=== PATIENT | female | born 1975 | race Caucasian/White ===

== ENCOUNTER 2017-06-04 15:11 | Inpatient (IN) | payer SELFPAY ==
[~2017-06-04 15:11] MED LIST: Levothyroxine 75 MCG Tab PO SCH
[2017-06-04] MEDS ORDERED: LORazepam 2 MG/ML SDV ONE (15:13)
[2017-06-04] MEDS ORDERED: LORazepam 2 MG/ML SDV IVPUSH ONE ×2 (15:13→15:34)
[2017-06-04] MEDS ORDERED: Sodium Chloride 0.9% 10 ML Syringe FLUSH PRN ×2 (15:14→17:17)
[2017-06-04] MEDS ORDERED: Sodium Chloride 0.9% 1,000 ML IV ONE ×2 (15:14→16:44)
[2017-06-04] MEDS ORDERED: Sodium Chloride 0.9% 2.5 ML Syringe FLUSH PRN ×2 (15:14→17:17)
--- NOTE | 2017-06-04 15:16 | EDM.PDOC ---
ED HPI GENERAL MEDICAL PROBLEM - General Stated Complaint: NUMBNESS IN HER HANDS Time Seen by Provider: 06/04/17 15:16 Source of Information: Reports: Patient History Limitations: Reports: No Limitations - History of Present Illness INITIAL COMMENTS - FREE TEXT/NARRATIVE: HISTORY AND PHYSICAL: []41-year-old female presenting with concerns over "my calciums high" History of Present Illness: []Patient is breathing rapidly. Holding arms rigidly to her chest Review of Systems: As per history of present illness and below otherwise all systems reviewed and negative. Past medical history: As per history of present illness and as reviewed below otherwise noncontributory. Surgical history: As per history of present illness and as reviewed below otherwise noncontributory. Social history: No reported history of drug or alcohol abuse. Family history: As per history of present illness and as reviewed below otherwise noncontributory. Physical exam: Following directions well. HEENT: Atraumatic, normocehpalic, pupils reactive, negative for conjunctival pallor or scleral icterus, mucous membranes moist, throat clear, neck supple, nontender, trachea midline. Lungs: Clear to auscultation, breath sounds equal bilaterally, chest non tender. Heart: S1S2, regular, negative for clicks, rubs, or JVD. Abdomen: Soft, nondistended, nontender. Negative for masses or hepatossplenmegaly. Negative for costovertebral tenderness. Pelvis: Stable nontender. Genitourinary: Deferred. Rectal: Deferred Extremities: Atraumatic, negative for cords or calf pain. Neurovascular unremarkable. Neuro: Awake, alert, oriented. Cranial nerves II through XII unremarkable. Cerebellum unremarkable. Motor and sensory unremarkable throughout. Exam nonfocal. Discussed results with the patient and with her boyfriend and they have voiced understanding Discussed this patient with Dr. Houston who has accepted patient for inpatient admission on telemetry Diagnostics: []CBC CMP exam EKG UA urine drug screen urine culture Therapeutics: []Ativan Normal saline Impression: [Hypocalcemia] Plan: []Admit as inpatient hospital Definitive disposition and diagnosis as appropriate pending reevaluation and review of above. Onset: Today, Sudden Duration: Minutes:, Getting Worse Location: Reports: Generalized Quality: Reports: Ache Severity: Moderate Improves with: Reports: None Worsens with: Reports: None - Related Data Allergies Allergy/AdvReac Type Severity Reaction Status Date / Time morphine Allergy Other Verified 06/04/17 15:40 Opioids - Morphine Analogues Allergy Other Verified 06/04/17 15:40 Home Meds: Home Meds Levothyroxine 175 mcg PO DAILY 06/04/17 [History] ED ROS GENERAL - Review of Systems Review Of Systems: ROS reveals no pertinent complaints other than HPI. ED EXAM, GENERAL - Physical Exam Exam: See Below (See dictation) EKG INTERPRETATION EKG Date: 06/04/17 Rhythm: NSR Comparison: NA - No Prior EKG Course - Vital Signs Last Recorded V/S: Last Vital Signs Temp 35.9 C 06/04/17 15:27 Pulse 119 H 06/04/17 15:27 Resp 40 H 06/04/17 15:27 BP 172/132 H 06/04/17 15:27 Pulse Ox 80 L 06/04/17 15:27 - Orders/Labs/Meds Orders: Active Orders 24 hr Category Date Time Status Patient Status [ADT] Stat ADT 06/04/17 16:59 Ordered EKG Documentation Completion [RC] STAT Care 06/04/17 15:20 Active Chest 1V Frontal [CR] Stat Exams 06/04/17 15:43 Taken CULTURE URINE [RM] Stat Lab 06/04/17 15:26 Received Calcium Gluconate 1 gm Med 06/04/17 17:00 Active Sodium Chloride 0.9% [Normal Saline] 100 ml IV ONETIME Magnesium Sulfate/Water [Magnesium Sulfate 2 GM in Med 06/04/17 16:39 Active Water 50 ML] 2 gm Premix Bag 1 bag IV ONETIME Sodium Chloride 0.9% [Normal Saline] 1,000 ml Med 06/04/17 16:44 Active IV STAT Sodium Chloride 0.9% [Saline Flush] Med 06/04/17 15:14 Active 10 ml FLUSH ASDIRECTED PRN Sodium Chloride 0.9% [Saline Flush] Med 06/04/17 15:14 Active 2.5 ml FLUSH ASDIRECTED PRN Saline Lock Insert [OM.PC] Stat Oth 06/04/17 15:13 Ordered Medication Orders Magnesium Sulfate 2 gm/ Premix 50 mls @ 25 mls/hr IV ONETIME ONE Stop: 06/04/17 18:38 Last Admin: 06/04/17 16:49 Dose: 25 mls/hr Sodium Chloride (Normal Saline) 1,000 mls @ 125 mls/hr IV STAT ONE Stop: 06/05/17 00:43 Calcium Gluconate 1 gm/ Sodium (Chloride) 110 mls @ 110 mls/hr IV ONETIME ONE Stop: 06/04/17 17:59 Last Admin: 06/04/17 16:58 Dose: 220 mls/hr Sodium Chloride (Saline Flush) 10 ml FLUSH ASDIRECTED PRN PRN Reason: Keep Vein Open Sodium Chloride (Saline Flush) 2.5 ml FLUSH ASDIRECTED PRN PRN Reason: Keep Vein Open Labs: Laboratory Tests 06/04/17 06/04/17 06/04/17 Range/Units 15:15 15:15 15:15 WBC 9.09 (4.0-11.0) K/uL RBC 4.14 L (4.30-5.90) M/uL Hgb 12.8 (12.0-16.0) g/dL Hct 39.8 (36.0-46.0) % MCV 96.1 (80.0-98.0) fL MCH 30.9 (27.0-32.0) pg MCHC 32.2 (31.0-37.0) g/dL RDW Std Deviation 53.6 (28.0-62.0) fl RDW Coeff of Francine 15 (11.0-15.0) % Plt Count 308 (150-400) K/uL MPV 11.30 (7.40-12.00) fL Neut % (Auto) 53.3 (48.0-80.0) % Lymph % (Auto) 38.6 (16.0-40.0) % [place] % (Auto) 7.7 (0.0-15.0) % Eos % (Auto) 0.0 (0.0-7.0) % Baso % (Auto) 0.4 (0.0-1.5) % Neut # (Auto) 4.8 (1.4-5.7) K/uL Lymph # (Auto) 3.5 H (0.6-2.4) K/uL [place] # (Auto) 0.7 (0.0-0.8) K/uL Eos # (Auto) 0.0 (0.0-0.7) K/uL Baso # (Auto) 0.0 (0.0-0.1) K/uL Nucleated RBC % 0.0 /100WBC Nucleated RBCs # 0 K/uL Sodium 142 (136-145) mmol/L Potassium 4.4 (3.5-5.1) mmol/L Chloride 103 (98-107) mmol/L Carbon Dioxide 22.4 (21.0-32.0) mmol/L BUN 13 (7.0-18.0) mg/dL Creatinine 1.1 H (0.6-1.0) mg/dL Est Cr Clr Drug Dosing TNP Estimated GFR (MDRD) 55.0 ml/min Glucose 100 (74-106) mg/dL Calcium 6.2 L (8.5-10.1) mg/dL Magnesium 1.4 L (1.5-2.0) mg/dL Total Bilirubin 0.3 (0.2-1.0) mg/dL AST 19 (15-37) IU/L ALT 13 L (14-63) IU/L Alkaline Phosphatase 48 (46-116) U/L Total Protein 7.4 (6.4-8.2) g/dL Albumin 3.7 (3.4-5.0) g/dL Globulin 3.7 H (2.0-3.5) g/dL Albumin/Globulin Ratio 1.0 L (1.3-2.8) Free T4 0.64 L (0.76-1.46) ng/dL TSH 3rd Generation 26.74 H (0.36-3.74) uIU/mL Urine Color Urine Appearance Urine pH (5.0-8.0) Ur Specific [place] (1.001-1.035) Urine Protein (NEGATIVE) mg/dL Urine Glucose (UA) (NEGATIVE) mg/dL Urine Ketones (NEGATIVE) mg/dL Urine Occult Blood (NEGATIVE) Urine Nitrite (NEGATIVE) Urine Bilirubin (NEGATIVE) Urine Urobilinogen (<2.0) EU/dL Ur Leukocyte Esterase (NEGATIVE) Urine RBC (0-2/HPF) Urine WBC (0-5/HPF) Ur Epithelial Cells (NONE-FEW) Urine Bacteria (NEGATIVE) Urine Opiates Screen (NEGATIVE) Ur Oxycodone Screen (NEGATIVE) Urine Methadone Screen (NEGATIVE) Ur Barbiturates Screen (NEGATIVE) Ur Phencyclidine Scrn (NEGATIVE) Ur Amphetamine Screen (NEGATIVE) U Methamphetamines Scrn (NEGATIVE) U Benzodiazepines Scrn (NEGATIVE) U Cocaine Metab Screen (NEGATIVE) U Marijuana (THC) Screen (NEGATIVE) 06/04/17 06/04/17 Range/Units 15:26 15:26 WBC (4.0-11.0) K/uL RBC (4.30-5.90) M/uL Hgb (12.0-16.0) g/dL Hct (36.0-46.0) % MCV (80.0-98.0) fL MCH (27.0-32.0) pg MCHC (31.0-37.0) g/dL RDW Std Deviation (28.0-62.0) fl RDW Coeff of Francine (11.0-15.0) % Plt Count (150-400) K/uL MPV (7.40-12.00) fL Neut % (Auto) (48.0-80.0) % Lymph % (Auto) (16.0-40.0) % [place] % (Auto) (0.0-15.0) % Eos % (Auto) (0.0-7.0) % Baso % (Auto) (0.0-1.5) % Neut # (Auto) (1.4-5.7) K/uL Lymph # (Auto) (0.6-2.4) K/uL [place] # (Auto) (0.0-0.8) K/uL Eos # (Auto) (0.0-0.7) K/uL Baso # (Auto) (0.0-0.1) K/uL Nucleated RBC % /100WBC Nucleated RBCs # K/uL Sodium (136-145) mmol/L Potassium (3.5-5.1) mmol/L Chloride (98-107) mmol/L Carbon Dioxide (21.0-32.0) mmol/L BUN (7.0-18.0) mg/dL Creatinine (0.6-1.0) mg/dL Est Cr Clr Drug Dosing Estimated GFR (MDRD) ml/min Glucose (74-106) mg/dL Calcium (8.5-10.1) mg/dL Magnesium (1.5-2.0) mg/dL Total Bilirubin (0.2-1.0) mg/dL AST (15-37) IU/L ALT (14-63) IU/L Alkaline Phosphatase (46-116) U/L Total Protein (6.4-8.2) g/dL Albumin (3.4-5.0) g/dL Globulin (2.0-3.5) g/dL Albumin/Globulin Ratio (1.3-2.8) Free T4 (0.76-1.46) ng/dL TSH 3rd Generation (0.36-3.74) uIU/mL Urine Color YELLOW Urine Appearance CLEAR Urine pH 8.0 (5.0-8.0) Ur Specific [place] 1.015 (1.001-1.035) Urine Protein TRACE (NEGATIVE) mg/dL Urine Glucose (UA) NEGATIVE (NEGATIVE) mg/dL Urine Ketones NEGATIVE (NEGATIVE) mg/dL Urine Occult Blood NEGATIVE (NEGATIVE) Urine Nitrite NEGATIVE (NEGATIVE) Urine Bilirubin NEGATIVE (NEGATIVE) Urine Urobilinogen 0.2 (<2.0) EU/dL Ur Leukocyte Esterase NEGATIVE (NEGATIVE) Urine RBC 0-1 (0-2/HPF) Urine WBC 0-1 (0-5/HPF) Ur Epithelial Cells RARE (NONE-FEW) Urine Bacteria RARE (NEGATIVE) Urine Opiates Screen NEGATIVE (NEGATIVE) Ur Oxycodone Screen NEGATIVE (NEGATIVE) Urine Methadone Screen NEGATIVE (NEGATIVE) Ur Barbiturates Screen NEGATIVE (NEGATIVE) Ur Phencyclidine Scrn NEGATIVE (NEGATIVE) Ur Amphetamine Screen NEGATIVE (NEGATIVE) U Methamphetamines Scrn NEGATIVE (NEGATIVE) U Benzodiazepines Scrn NEGATIVE (NEGATIVE) U Cocaine Metab Screen NEGATIVE (NEGATIVE) U Marijuana (THC) Screen POSITIVE (NEGATIVE) Meds: Medications Generic Name Dose Route Start Last Admin Trade Name Freq PRN Reason Stop Dose Admin Magnesium Sulfate 2 gm/ Premix 50 mls @ 25 mls/hr 06/04/17 16:39 06/04/17 16: 49 IV 06/04/17 18:38 25 mls/hr ONETIME ONE Administration Sodium Chloride 1,000 mls @ 125 mls/hr 06/04/17 16:44 Normal Saline IV 06/05/17 00:43 STAT ONE Calcium Gluconate 1 gm/ Sodium 110 mls @ 110 mls/hr 06/04/17 17:00 06/04/17 16:58 Chloride IV 06/04/17 17:59 220 mls/hr ONETIME ONE Administration Sodium Chloride 10 ml 06/04/17 15:14 Saline Flush FLUSH ASDIRECTED PRN Keep Vein Open Sodium Chloride 2.5 ml 06/04/17 15:14 Saline Flush FLUSH ASDIRECTED PRN Keep Vein Open Discontinued Medications Generic Name Dose Route Start Last Admin Trade Name Mary PRN Reason Stop Dose Admin Sodium Chloride 1,000 mls @ 999 mls/hr 06/04/17 15:14 06/04/17 15:44 Normal Saline IV 06/04/17 16:14 999 mls/hr STAT ONE Administration Lorazepam 1 mg 06/04/17 15:13 06/04/17 15:43 Ativan IVPUSH 06/04/17 15:14 1 mg ONETIME ONE Administration Lorazepam Confirm 06/04/17 15:13 06/04/17 15:43 Ativan Administered 06/04/17 15:14 Not Given Dose 2 mg .ROUTE .STK-MED ONE Lorazepam 1 mg 06/04/17 15:34 06/04/17 15:36 Ativan IVPUSH 06/04/17 15:35 1 mg ONETIME ONE Administration Departure - Departure Time of Disposition: 17:02 Disposition: Admitted As Inpatient 67 Condition: Fair Clinical Impression: Hypocalcemia - Discharge Information - My Orders Last 24 Hours: My Active Orders 06/04/17 15:13 Saline Lock Insert [OM.PC] Stat 06/04/17 15:14 Sodium Chloride 0.9% [Saline Flush] 10 ml FLUSH ASDIRECTED PRN Sodium Chloride 0.9% [Saline Flush] 2.5 ml FLUSH ASDIRECTED PRN 06/04/17 15:20 EKG Documentation Completion [RC] STAT 06/04/17 15:26 CULTURE URINE [RM] Stat 06/04/17 15:43 Chest 1V Frontal [CR] Stat 06/04/17 16:39 Magnesium Sulfate/Water [Magnesium Sulfate 2 GM in Water 50 ML] 2 gm Premix Bag 1 bag IV ONETIME 06/04/17 16:44 Sodium Chloride 0.9% [Normal Saline] 1,000 ml IV STAT 06/04/17 16:59 Patient Status [ADT] Stat 06/04/17 17:00 Calcium Gluconate 1 gm Sodium Chloride 0.9% [Normal Saline] 100 ml IV ONETIME - Assessment/Plan Last 24 Hours: My Active Orders 06/04/17 15:13 Saline Lock Insert [OM.PC] Stat 06/04/17 15:14 Sodium Chloride 0.9% [Saline Flush] 10 ml FLUSH ASDIRECTED PRN Sodium Chloride 0.9% [Saline Flush] 2.5 ml FLUSH ASDIRECTED PRN 06/04/17 15:20 EKG Documentation Completion [RC] STAT 06/04/17 15:26 CULTURE URINE [RM] Stat 06/04/17 15:43 Chest 1V Frontal [CR] Stat 06/04/17 16:39 Magnesium Sulfate/Water [Magnesium Sulfate 2 GM in Water 50 ML] 2 gm Premix Bag 1 bag IV ONETIME 06/04/17 16:44 Sodium Chloride 0.9% [Normal Saline] 1,000 ml IV STAT 06/04/17 16:59 Patient Status [ADT] Stat 06/04/17 17:00 Calcium Gluconate 1 gm Sodium Chloride 0.9% [Normal Saline] 100 ml IV ONETIME
[2017-06-04 16:09] LABS: CHLORIDE,CL 103 mmol/L (98-107); SODIUM,NA 142 mmol/L (136-145)
[2017-06-04] MEDS ORDERED: Magnesium Sulfate/Water 2 GM in Premix Bag 1 BAG IV ONE (16:39)
[2017-06-04] MEDS ORDERED: Calcium Gluconate 1 GM in Sodium Chloride 0.9% 100 ML IV ONE (17:00)
[2017-06-04] MEDS ORDERED: Ondansetron 4 MG/2 ML SDV IVPUSH PRN (17:17)
[2017-06-04] MEDS ORDERED: Sodium Chloride 0.9% 1,000 ML IV SCH (17:30)
[2017-06-04] MEDS ORDERED: Levothyroxine 75 MCG Tab PO SCH (18:10)
[2017-06-04] MEDS ORDERED: Calcium Gluconate 1 GM in Dextrose 5% in Water 50 ML IV SCH ×4 (18:15)
[2017-06-04] MEDS: Enoxaparin 40 MG/0.4 ML Syringe SUBCUT SCH (18:16)
--- NOTE | 2017-06-04 18:16 | PCM.HP ---
H&P History of Present Illness - General Date of Service: 06/04/17 Admit Problem/Dx: Admission Diagnosis/Problem Admission Diagnosis/Problem Hypocalcemia Source of Information: Patient - History of Present Illness Initial Comments - Free Text/Narative: This is a 41-year-old female who is presenting secondary to symptomatic hypocalcemia, hypo-thyroidism. Patient states that she has a significant past medical history of hypothyroidism secondary to a thyroidectomy which accidentally also resulted in all 4 of her parathyroid glands being removed as well. As a result the patient is hypothyroid as well as hypoparathyroid. Patient states that she is on levothyroxine 175mcg daily along with taking calcium supplementation for which she does not recall how much she takes. Patient states that she is noncompliant with her medication. This is evident by the fact the patient's TSH is greater than 24, and her T4 is subtherapeutic, and she has a hypocalcemia of 6.2 on admission. Patient states that this morning when she tried to get into her top she started to severely cramp and the cramping and muscle spasms would not go away, she does have a positive chvostek's sign. In the ER the patient was given 1 g of calcium gluconate IV. Headache Pain Score (Numeric/FACES): 7 - Related Data Allergies/Adverse Reactions: Allergies Allergy/AdvReac Type Severity Reaction Status Date / Time morphine Allergy Other Verified 06/04/17 15:40 Opioids - Morphine Analogues Allergy Other Verified 06/04/17 15:40 Home Medications: Home Meds Levothyroxine 175 mcg PO DAILY 06/04/17 [History] Calcitriol 0.25 mcg PO BID 30 Days #60 capsule 06/05/17 [Rx] Calcium Citrate 1 gm MC DAILY 30 Days #30 powder 06/05/17 [Rx] Levothyroxine 175 mcg PO ACBRK 3 Days #3 tab 06/05/17 [Rx] Past Medical History HEENT History: Reports: None Cardiovascular History: Reports: None Respiratory History: Reports: None Gastrointestinal History: Reports: None Genitourinary History: Reports: None [employer] History: Reports: None Musculoskeletal History: Reports: None Neurological History: Reports: Cerebral Aneurysms Psychiatric History: Reports: None Endocrine/Metabolic History: Reports: None Hematologic History: Reports: Other (See Below) Other Hematologic History: Calcium deficency Immunologic History: Reports: None Oncologic (Cancer) History: Reports: None Dermatologic History: Reports: None - Infectious Disease History Infectious Disease History: Reports: Other (See Below) Other Infectious Disease History: pt unable to answer - Past Surgical History Head Surgeries/Procedures: Reports: None HEENT Surgical History: Reports: None Cardiovascular Surgical History: Reports: None Respiratory Surgical History: Reports: None GI Surgical History: Reports: None Female Surgical History: Reports: Tubal Ligation Endocrine Surgical History: Reports: Thyroidectomy Neurological Surgical History: Reports: None Musculoskeletal Surgical History: Reports: None Oncologic Surgical History: Reports: None Dermatological Surgical History: Reports: None Social & Family History - Family History Family Medical History: Unobtainable - Tobacco Use Smoking Status *Q: Unknown Ever Smoked - Caffeine Use Caffeine Use: Reports: None Other Caffeine Use: unable to assess - Recreational Drug Use Recreational Drug Use: Yes Recreational Drug Type: Reports: Marijuana/Hashish, Methamphetamine H&P Review of Systems - Review of Systems: Review Of Systems: ROS reveals no pertinent complaints other than HPI. Exam - Exam Exam: See Below - Vital Signs Vital Signs: Last Vital Signs Temp 36.8 C 06/04/17 17:58 Pulse 76 06/04/17 17:58 Resp 18 06/04/17 17:58 BP 126/75 06/04/17 17:58 Pulse Ox 100 06/04/17 17:58 Weight: 60.8 kg - Exam General: Alert, Cooperative, Mild Distress HEENT: Other (Patient appeared to be slightly drowsy, does have a positive chvostek sign. ) Lungs: Clear to Auscultation, Normal Respiratory Effort Cardiovascular: Regular Rate GI/Abdominal Exam: Normal Bowel Sounds - Patient Data Result Diagrams: 06/05/17 06:05 06/05/17 06:05 *Q Meaningful Use (ADM) - VTE *Q VTE Criteria *Q: - Stroke *Q Stroke Criteria *Q: - AMI *Q AMI Criteria *Q: - Problem List (1) Hypothyroidism SNOMED Code(s): 20404581 ICD Code: E03.9 - HYPOTHYROIDISM, UNSPECIFIED Status: Acute Problem List Initiated/Reviewed/Updated: Yes Orders Last 24hrs: Active Orders 24 hr Category Date Time Status Patient Status [ADT] Routine ADT 06/04/17 17:17 Active Antiembolic Devices [RC] PER UNIT ROUTINE Care 06/04/17 17:21 Active Cardiac Monitoring [RC] Q8H Care 06/04/17 17:19 Active Height and Weight [RC] UPON Care 06/04/17 17:17 Active Intake and Output [RC] QSHIFT Care 06/04/17 17:19 Active Notify Provider Vital Signs [RC] ASDIRECTED Care 06/04/17 17:19 Active Oxygen Therapy [RC] PRN Care 06/04/17 17:17 Active Pulse Oximetry [RC] PRN Care 06/04/17 17:19 Active Telemetry Monitoring [Cardiac Monitoring] [RC] . Care 06/04/17 17:03 Active DIRECTED Up With Assistance [RC] ASDIRECTED Care 06/04/17 17:17 Active VTE/DVT Education [RC] PER UNIT ROUTINE Care 06/04/17 17:17 Active Vital Signs [RC] Q4H Care 06/04/17 17:17 Active Regular Diet [DIET] Diet 06/04/17 Breakfast Active CALCIUM [CHEM] Q4H Lab 06/04/17 20:00 Ordered CALCIUM [CHEM] Q4H Lab 06/05/17 00:00 Ordered CBC WITH AUTO DIFF [HEME] AM Lab 06/05/17 05:11 Ordered COMPREHENSIVE METABOLIC PN,CMP [CHEM] AM Lab 06/05/17 05:11 Ordered MAGNESIUM [CHEM] AM Lab 06/05/17 05:11 Ordered PTH INTACT INCL CALCIUM [REF] Routine Lab 06/04/17 15:15 Received VITAMIN D 25-HYROXY (D2, D3) [REF] Routine Lab 06/04/17 15:15 Received Enoxaparin [Lovenox] Med 06/04/17 17:30 Active 40 mg SUBCUT Q24H Levothyroxine Med 06/04/17 07:30 Ordered 175 mcg PO ACBREAKFAST Ondansetron [Zofran] Med 06/04/17 17:17 Active 4 mg IVPUSH Q4H PRN Sodium Chloride 0.9% [Normal Saline] 1,000 ml Med 06/04/17 17:30 Active IV ASDIRECTED Sodium Chloride 0.9% [Saline Flush] Med 06/04/17 17:17 Active 10 ml FLUSH ASDIRECTED PRN Sodium Chloride 0.9% [Saline Flush] Med 06/04/17 17:17 Active 2.5 ml FLUSH ASDIRECTED PRN Peripheral IV Insertion Adult [OM.PC] Routine Oth 06/04/17 17:17 Ordered Saline Lock Insert [OM.PC] Routine Oth 06/04/17 17:17 Ordered Sequential Compression Device [OM.PC] Per Unit Routine Oth 06/04/17 17:20 Ordered Resuscitation Status Routine Resus Stat 06/04/17 17:17 Ordered Medication Orders Enoxaparin Sodium (Lovenox) 40 mg SUBCUT Q24H LUIGI Magnesium Sulfate 2 gm/ Premix 50 mls @ 25 mls/hr IV ONETIME ONE Stop: 06/04/17 18:38 Last Admin: 06/04/17 16:49 Dose: 25 mls/hr Sodium Chloride (Normal Saline) 1,000 mls @ 125 mls/hr IV STAT ONE Stop: 06/05/17 00:43 Sodium Chloride (Normal Saline) 1,000 mls @ 125 mls/hr IV ASDIRECTED LUIGI Levothyroxine Sodium (Levothyroxine) 175 mcg PO ACBREAKFAST LUIGI Ondansetron HCl (Zofran) 4 mg IVPUSH Q4H PRN PRN Reason: Nausea/Vomiting Sodium Chloride (Saline Flush) 10 ml FLUSH ASDIRECTED PRN PRN Reason: Keep Vein Open Sodium Chloride (Saline Flush) 2.5 ml FLUSH ASDIRECTED PRN PRN Reason: Keep Vein Open Sodium Chloride (Saline Flush) 10 ml FLUSH ASDIRECTED PRN PRN Reason: Keep Vein Open Sodium Chloride (Saline Flush) 2.5 ml FLUSH ASDIRECTED PRN PRN Reason: Keep Vein Open Assessment/Plan Comment:: 41-year-old female that is presenting with muscle spasms and fatigue secondary to hypocalcemia, hypothyroidism etiologies as a result of a thyroidectomy with accidental parathyroidectomy. 1. Muscle spasms secondary to hypocalcemia -Patient received another 1 g of calcium gluconate infusion over 20 minutes. Afterwards patient to receive 11 g of calcium gluconate and 1 L of fluid at a slower infusion rate of 50 and bowels per hour showed a steady increase in the patient's calcium levels. Patient's calciums are rechecked every 4 hours to ensure an appropriate rise in the patient's calcium. 2. Hypothyroidism -Patient is not compliant with her hypothyroid medication, patient is on levothyroxine 175mcg daily. We shall restart this dose for the patient.
[2017-06-04] MEDS ORDERED: LORazepam 1 MG Tab PO PRN (20:30)
[2017-06-04] MEDS ORDERED: Calcium Gluconate 11 GM in Sodium Chloride 0.9% 1,000 ML IV SCH (20:30)
[2017-06-04] MEDS ORDERED: Ibuprofen 400 MG Tab PO PRN (22:46)
[2017-06-05 07:16] LABS: CHLORIDE,CL 104 mmol/L (98-107); SODIUM,NA 138 mmol/L (136-145)
[2017-06-05] MEDS ORDERED: Levothyroxine 100 MCG Tab PO SCH (07:30)
[2017-06-05] MEDS ORDERED: Levothyroxine 112 MCG Tab PO SCH (07:30)
[2017-06-05] MEDS ORDERED: Potassium Chloride 10% 20 MEQ/15 ML Soln 30 ML UD Cup PO ONE (10:40)
[2017-06-05] MEDS ORDERED: Magnesium Sulfate/Water 4 GM in Premix Bag 1 BAG IV ONE (10:40)
[2017-06-05] MEDS ORDERED: Nicotine 14 MG/24 Hr Patch TRDERM SCH (12:45)
[2017-06-05] MEDS ORDERED: Naproxen 500 MG Tab PO PRN (13:28)
[2017-06-05] MEDS: Enoxaparin 40 MG/0.4 ML Syringe SUBCUT SCH (17:30)
--- NOTE | 2017-06-06 00:06 | PCM.DCSUM1 ---
Discharge Summary - Discharge Data Discharge Disposition: Home, Self-Care 01 Condition: Stable - Discharge Diagnosis/Problem(s) (1) Hypothyroidism SNOMED Code(s): 01942354 ICD Code: E03.9 - HYPOTHYROIDISM, UNSPECIFIED Status: Acute - Patient Instructions Diet: Usual Diet as Tolerated Activity: As Tolerated Driving: Do Not Drive Showering/Bathing: May Shower Notify Provider of: Fever, Increased Pain, Swelling and Redness, Drainage, Nausea and/or Vomiting - Discharge Plan Prescriptions/Med Rec: Calcitriol 0.25 mcg PO BID 30 Days #60 capsule Calcium Citrate 1 gm MC DAILY 30 Days #30 powder Levothyroxine 175 mcg PO ACBRK 3 Days #3 tab Home Medications: Home Meds Levothyroxine 175 mcg PO DAILY 06/04/17 [History] Calcitriol 0.25 mcg PO BID 30 Days #60 capsule 06/05/17 [Rx] Calcium Citrate 1 gm MC DAILY 30 Days #30 powder 06/05/17 [Rx] Levothyroxine 175 mcg PO ACBRK 3 Days #3 tab 06/05/17 [Rx] Patient Handouts: Calcium; Vitamin D oral tablets, Calcitriol capsules, Levothyroxine tablets, Hypocalcemia, Adult Referrals: Chuy Dhillon MD [Ordering Only Provider] - (Please call Dr. Dhillon's office at [place] to schedule post-hospital follow-up appointment) - Patient Data Vitals - Most Recent: Last Vital Signs Temp 37.1 C 06/05/17 16:27 Pulse 72 06/05/17 16:27 Resp 14 06/05/17 16:27 BP 134/86 06/05/17 16:27 Pulse Ox 100 06/05/17 17:19 Weight - Most Recent: 60.8 kg I&O - Last 24 hours: Intake & Output 06/05/17 06/05/17 06/06/17 14:59 22:59 06:59 Intake Total 100 2974 Output Total 2150 Balance 100 824 Lab Results - Last 24 hrs: Laboratory Results - last 24 hr 06/05/17 06/05/17 06/05/17 Range/Units 00:19 06:05 06:05 WBC 5.33 (4.0-11.0) K/uL RBC 3.71 L (4.30-5.90) M/uL Hgb 11.3 L (12.0-16.0) g/dL Hct 35.1 L (36.0-46.0) % MCV 94.6 (80.0-98.0) fL MCH 30.5 (27.0-32.0) pg MCHC 32.2 (31.0-37.0) g/dL RDW Std Deviation 51.8 (28.0-62.0) fl RDW Coeff of Francine 15 (11.0-15.0) % Plt Count 252 (150-400) K/uL MPV 11.80 (7.40-12.00) fL Neut % (Auto) 62.4 (48.0-80.0) % Lymph % (Auto) 29.3 (16.0-40.0) % [place] % (Auto) 7.5 (0.0-15.0) % Eos % (Auto) 0.0 (0.0-7.0) % Baso % (Auto) 0.8 (0.0-1.5) % Neut # (Auto) 3.3 (1.4-5.7) K/uL Lymph # (Auto) 1.6 (0.6-2.4) K/uL [place] # (Auto) 0.4 (0.0-0.8) K/uL Eos # (Auto) 0.0 (0.0-0.7) K/uL Baso # (Auto) 0.0 (0.0-0.1) K/uL Nucleated RBC % 0.0 /100WBC Nucleated RBCs # 0 K/uL Sodium 138 (136-145) mmol/L Potassium 3.3 L (3.5-5.1) mmol/L Chloride 104 (98-107) mmol/L Carbon Dioxide 22.8 (21.0-32.0) mmol/L BUN 10 (7.0-18.0) mg/dL Creatinine 0.7 (0.6-1.0) mg/dL Est Cr Clr Drug Dosing 96.13 mL/min Estimated GFR (MDRD) > 60.0 ml/min Glucose 80 (74-106) mg/dL Calcium 6.3 L 7.0 L (8.5-10.1) mg/dL Magnesium 1.3 L (1.5-2.0) mg/dL Total Bilirubin 0.2 (0.2-1.0) mg/dL AST 15 (15-37) IU/L ALT 11 L (14-63) IU/L Alkaline Phosphatase 35 L (46-116) U/L Total Protein 5.7 L (6.4-8.2) g/dL Albumin 2.8 L (3.4-5.0) g/dL Globulin 2.9 (2.0-3.5) g/dL Albumin/Globulin Ratio 1.0 L (1.3-2.8) Free T4 (0.76-1.46) ng/dL TSH 3rd Generation (0.36-3.74) uIU/mL 06/05/17 06/05/17 Range/Units 07:00 16:18 WBC (4.0-11.0) K/uL RBC (4.30-5.90) M/uL Hgb (12.0-16.0) g/dL Hct (36.0-46.0) % MCV (80.0-98.0) fL MCH (27.0-32.0) pg MCHC (31.0-37.0) g/dL RDW Std Deviation (28.0-62.0) fl RDW Coeff of Francine (11.0-15.0) % Plt Count (150-400) K/uL MPV (7.40-12.00) fL Neut % (Auto) (48.0-80.0) % Lymph % (Auto) (16.0-40.0) % [place] % (Auto) (0.0-15.0) % Eos % (Auto) (0.0-7.0) % Baso % (Auto) (0.0-1.5) % Neut # (Auto) (1.4-5.7) K/uL Lymph # (Auto) (0.6-2.4) K/uL [place] # (Auto) (0.0-0.8) K/uL Eos # (Auto) (0.0-0.7) K/uL Baso # (Auto) (0.0-0.1) K/uL Nucleated RBC % /100WBC Nucleated RBCs # K/uL Sodium (136-145) mmol/L Potassium (3.5-5.1) mmol/L Chloride (98-107) mmol/L Carbon Dioxide (21.0-32.0) mmol/L BUN (7.0-18.0) mg/dL Creatinine (0.6-1.0) mg/dL Est Cr Clr Drug Dosing mL/min Estimated GFR (MDRD) ml/min Glucose (74-106) mg/dL Calcium 8.6 (8.5-10.1) mg/dL Magnesium (1.5-2.0) mg/dL Total Bilirubin (0.2-1.0) mg/dL AST (15-37) IU/L ALT (14-63) IU/L Alkaline Phosphatase (46-116) U/L Total Protein (6.4-8.2) g/dL Albumin (3.4-5.0) g/dL Globulin (2.0-3.5) g/dL Albumin/Globulin Ratio (1.3-2.8) Free T4 0.56 L (0.76-1.46) ng/dL TSH 3rd Generation 33.42 H (0.36-3.74) uIU/mL Med Orders - Current: Current Medications Discontinued Medications Enoxaparin Sodium (Lovenox) 40 mg SUBCUT Q24H [facility] Last Admin: 06/05/17 17:30 Dose: 40 mg Sodium Chloride (Normal Saline) 1,000 mls @ 999 mls/hr IV STAT ONE Stop: 06/04/17 16:14 Last Admin: 06/04/17 15:44 Dose: 999 mls/hr Magnesium Sulfate 2 gm/ Premix 50 mls @ 25 mls/hr IV ONETIME ONE Stop: 06/04/17 18:38 Last Admin: 06/04/17 16:49 Dose: 25 mls/hr Sodium Chloride (Normal Saline) 1,000 mls @ 125 mls/hr IV STAT ONE Stop: 06/05/17 00:43 Last Admin: 06/04/17 18:31 Dose: Not Given Calcium Gluconate 1 gm/ Sodium (Chloride) 110 mls @ 110 mls/hr IV ONETIME ONE Stop: 06/04/17 17:59 Last Admin: 06/04/17 16:58 Dose: 220 mls/hr Sodium Chloride (Normal Saline) 1,000 mls @ 125 mls/hr IV ASDIRECTED [facility] Calcium Gluconate 1 gm/ (Dextrose/Water) 60 mls @ 125 mls/hr IV ASDIRECTED [facility] Calcium Gluconate 1 gm/ (Dextrose/Water) 60 mls @ 125 mls/hr IV ASDIRECTED [facility] Last Admin: 06/04/17 19:45 Dose: 125 mls/hr Calcium Gluconate 11 gm/ (Sodium Chloride) 1,110 mls @ 50 mls/hr IV ASDIRECTED [facility] Last Admin: 06/04/17 22:23 Dose: 50 mls/hr Calcium Gluconate 2 gm/ Sodium (Chloride) 70 mls @ 125 mls/hr IV STAT ONE Stop: 06/04/17 21:00 Magnesium Sulfate 4 gm/ Premix 100 mls @ 50 mls/hr IV ONETIME ONE Stop: 06/05/17 12:39 Last Admin: 06/05/17 11:12 Dose: 50 mls/hr Ibuprofen (Motrin) 400 mg PO Q6H PRN PRN Reason: Pain Levothyroxine Sodium (Levothyroxine) 112 mcg PO ACBREAKFAST [facility] Levothyroxine Sodium (Levothyroxine) 0 mcg PO ACBREAKFAST [facility] Last Admin: 06/04/17 18:32 Dose: Not Given Levothyroxine Sodium (Synthroid) 100 mcg PO ACBREAKFAST [facility] Last Admin: 06/05/17 07:29 Dose: 100 mcg Levothyroxine Sodium (Levothyroxine) 75 mcg PO ACBREAKFAST [facility] Last Admin: 06/05/17 06:30 Dose: 75 mcg Lorazepam (Ativan) 1 mg IVPUSH ONETIME ONE Stop: 06/04/17 15:14 Last Admin: 06/04/17 15:43 Dose: 1 mg Lorazepam (Ativan) Confirm Administered Dose 2 mg .ROUTE .STK-MED ONE Stop: 06/04/17 15:14 Last Admin: 06/04/17 15:43 Dose: Not Given Lorazepam (Ativan) 1 mg IVPUSH ONETIME ONE Stop: 06/04/17 15:35 Last Admin: 06/04/17 15:36 Dose: 1 mg Lorazepam (Ativan) 0 mg PO Q4H PRN; Protocol PRN Reason: Agitation Last Admin: 06/04/17 23:12 Dose: 1 mg Naproxen (Naprosyn) 250 mg PO Q12HR PRN PRN Reason: Pain Last Admin: 06/05/17 17:42 Dose: 250 mg Nicotine (Habitrol) 14 mg TRDERM Q24H [facility] Last Admin: 06/05/17 13:24 Dose: 14 mg Ondansetron HCl (Zofran) 4 mg IVPUSH Q4H PRN PRN Reason: Nausea/Vomiting Potassium Chloride (Potassium Chloride) 40 meq PO ONETIME ONE Stop: 06/05/17 10:41 Last Admin: 06/05/17 11:12 Dose: 40 meq Sodium Chloride (Saline Flush) 10 ml FLUSH ASDIRECTED PRN PRN Reason: Keep Vein Open Sodium Chloride (Saline Flush) 2.5 ml FLUSH ASDIRECTED PRN PRN Reason: Keep Vein Open Sodium Chloride (Saline Flush) 10 ml FLUSH ASDIRECTED PRN PRN Reason: Keep Vein Open Sodium Chloride (Saline Flush) 2.5 ml FLUSH ASDIRECTED PRN PRN Reason: Keep Vein Open *Q Meaningful Use (DIS) - VTE *Q VTE Criteria *Q: - Stroke *Q Stroke Criteria *Q: - AMI *Q AMI Criteria *Q:
--- NOTE | 2017-06-07 11:09 | CR ---
EXAM DATE: 06/04/17 PATIENT'S AGE: 41 Patient: KATHERINE TUCKER Facility: [place], [place] Site . Site : [id number] Study: XRay Chest [id number] 4:30:55 PM Ordering Physician: Doctor Pinzon Final Report: INDICATION: Chest pain TECHNIQUE: Chest 1 view COMPARISON: None FINDINGS: Cardiovascular and mediastinum: Heart size and vasculature are normal in caliber and appearance. Mediastinum is within normal limits. Lungs and pleural space: No focal consolidation. No sign of pleural effusion. No pneumothorax. Bones and soft tissues: No significant findings. IMPRESSION: No acute cardiopulmonary disease. Dictated by Melvin Hernandez MD @ 06/04/2017 4:48:45 PM Dictated by: Melvin Hernandez MD @ 06/04/2017 16:48:51 (Electronic Signature) Report Signed by Proxy. [facility]
== END 2017-06-05 21:00 | disposition home or self-care (01) | DRG 641 ==
LOC: MW.ED 15:11 → MW.MS 16:59
PROVIDERS: ADMIT Internal Medicine; ATTEND Internal Medicine
DX: E83.51 Hypocalcemia (principal); E03.9 Hypothyroidism, unspecified; E20.9 Hypoparathyroidism, unspecified; E58 Dietary calcium deficiency; M62.838 Other muscle spasm; Z79.899 Other long term (current) drug therapy; Z88.5 Allergy status to narcotic agent; Z88.8 Allergy status to other drugs, medicaments and biological substances
CPT/HCPCS: 36415; 71045; 71045-26; 80053; 80305; 81001; 82306; 82310; 83735; 83970; 84100; 84439; 84443; 85025; 87086; 93005; 96365; 96368; 96375; 99283; 99285-25; A9270-GY; J0610; J1650; J2060; J3475; J7030; J7040; J7060